=== PATIENT | female | born 1990 | race Hispanic/Latino ===

== ENCOUNTER 2018-06-19 21:49 | Emergency (ER) | payer OTHER ==
--- NOTE | 2018-06-20 00:11 | ED PDOC ---
Arrival/HPI - General Historian: Patient - History of Present Illness Narrative History of Present Illness (Text): 28 year old female who presents to the Emergency department complaining of sudden onset of pain to epigastric area, described as heart burn sensation. Patient reports discomfort radiating to upper chest area by the shoulders. Patient states pain started this evening while walking home, associated with nausea. Patient otherwise shortness of breath, fever, cough, back pain, vomiting, diarrhea, urinary symptoms, or any other complaints. Patient has never had symptoms like this before, states she had heart burn once many years ago but does not regularly have heart burn. Patient also denies any leg pain/swelling, recent travel, OCP use, or tobacco abuse. Patient reports father has a history of PE/DVT and was diagnosed with factor 5 leiden. Patient was tested as child, as well as her siblings, and all were negative for factor 5 leiden. Patient reports pain has improved but does still have some discomfort to her upper chest. Symptom Onset: Gradual Symptom Course: Unchanged Activities at Onset: Light Context: Home <Denia Whitaker PA-C - Last Filed: 06/20/18 01:53> <Cj Morris - Last Filed: 06/20/18 04:25> - General Chief Complaint: Cough, Cold, Congestion Time Seen by Provider: 06/19/18 23:52 Past Medical History - Provider Review Nursing Documentation Reviewed: Yes - Infectious Disease Hx of Infectious Diseases: None - Cardiac Hx Cardiac Disorders: No - Pulmonary Hx Respiratory Disorders: No - Neurological Hx Neurological Disorder: No - HEENT Hx HEENT Disorder: No - Renal Hx Renal Disorder: No - Endocrine/Metabolic Hx Endocrine Disorders: No - Hematological/Oncological Hx Blood Disorders: No - Integumentary Hx Dermatological Disorder: No - Musculoskeletal/Rheumatological Hx Musculoskeletal Disorders: No - Gastrointestinal Hx Gastrointestinal Disorders: No - Genitourinary/Gynecological Hx Genitourinary Disorders: No - Psychiatric Hx Psychophysiologic Disorder: No Hx Substance Use: No - Surgical History Other/Comment: ear tubes @ 6yo. wisdome teeth @ 18yo - Anesthesia Hx Anesthesia: Yes Hx Anesthesia Reactions: No <Denia Whitaker PA-C - Last Filed: 06/20/18 01:53> Family/Social History - Physician Review Nursing Documentation Reviewed: Yes Family/Social History: Unknown Family HX Smoking Status: Never Smoked Hx Alcohol Use: Yes Hx Substance Use: No <Denia Whitaker PA-C - Last Filed: 06/20/18 01:53> Allergies/Home Meds <Denia Whitaker PA-C - Last Filed: 06/20/18 01:53> <Cj Morris - Last Filed: 06/20/18 04:25> Allergies/Adverse Reactions: Allergies No Known Allergies Allergy (Verified 06/19/18 23:52) Home Medications: Home Meds Medication Instructions Recorded Confirmed No Known Home Med 06/19/18 06/19/18 Review of Systems - Physician Review All systems were reviewed & negative as marked: Yes - Review of Systems Constitutional: absent: Fevers Respiratory: SOB Cardiovascular: Chest Pain Gastrointestinal: Abdominal Pain, Nausea. absent: Vomiting <Denia Whitaker PA-C - Last Filed: 06/20/18 01:53> Physical Exam Vital Signs Reviewed: Yes Temperature: Afebrile Blood Pressure: Normal Pulse: Regular Respiratory Rate: Normal Appearance: Positive for: Well-Appearing, Non-Toxic, Comfortable Pain Distress: None Mental Status: Positive for: Alert and Oriented X 3 - Systems Exam Head: Present: Atraumatic, Normocephalic Pupils: Present: PERRL Extroacular Muscles: Present: EOMI Conjunctiva: Present: Normal Mouth: Present: Moist Mucous Membranes Neck: Present: Normal Range of Motion Respiratory/Chest: Present: Clear to Auscultation, Good Air Exchange. No: Respiratory Distress, Accessory Muscle Use Cardiovascular: Present: Regular Rate and Rhythm, Normal S1, S2. No: Murmurs Abdomen: No: Tenderness, Distention, Peritoneal Signs Back: Present: Normal Inspection Upper Extremity: Present: Normal Inspection. No: Cyanosis, Edema Lower Extremity: Present: Normal Inspection. No: Edema Neurological: Present: GCS=15, CN II-XII Intact, Speech Normal Skin: Present: Warm, Dry, Normal Color. No: Rashes Psychiatric: Present: Alert, Oriented x 3, Normal Insight, Normal Concentration <Denia Whitaker PA-C - Last Filed: 06/20/18 01:53> Medical Decision Making ED Course and Treatment: Impression: 28 year old female complaining of burning epigastric pain, nausea, and upper chest discomfort. Plan: -- EKG -- Chest X-ray -- Labs, cardiac enzymes, D-dimer -- Carafate -- Reassess and disposition Progress Notes: EKG : NSR at 90 bpm, no acute ST changes. CXR : NAD. 01:45 Labs reviewed : d-dimer (+) 632. CTA chest ordered. On re-evaluation, patient is laying in bed comfortably in no acute distress without chest pain or SOB at this time. Patient sent to CT. - RAD Interpretation Radiology Orders: 06/20/18 00:07 CHEST PORTABLE [RAD] Stat <Denia Whitaker PA-C - Last Filed: 06/20/18 01:53> ED Course and Treatment: CTA Chest reviewed, shows: Normal enhancement of the main pulmonary artery and right and left pulmonary arteries. Normal enhancement of the bilateral peripheral pulmonary arteries. There is no demonstrated pulmonary embolism. Normal thoracic aorta and visualized great vessels. There is no demonstrated aortic dissection. Normal heart and pericardium. Normal mediastinum. Normal hilar regions. Normal visualized trachea and bronchi. The lungs are well expanded. Normal pulmonary parenchyma. Normal pleura. Normal chest wall structures. Normal osseous structures. Normal visualized upper abdomen. IMPRESSION: No demonstrated pulmonary embolism or arterial dissection. Electronically signed on Jun 20, 2018 3:58:13 AM EDT by: Eric Crawford M.D., Certified by [facility], MSK, Neuroradiology - Lab Interpretations Lab Results: 06/20/18 00:39 06/20/18 00:39 Lab Results 06/20/18 00:39: Sodium 141, Potassium 4.4, Chloride 103, Carbon Dioxide 26, Anion Gap 16, BUN 9, Creatinine 0.7, Est GFR ( Amer) > 60, Est GFR (Non- Af Amer) > 60, Random Glucose 105, Calcium 9.7, Magnesium 2.1, Total Bilirubin 0.4, AST 54 H, ALT 50, Alkaline Phosphatase 68, Lactate Dehydrogenase 441, Total Creatine Kinase 67, Troponin I < 0.01, Total Protein 8.0, Albumin 4.6, Globulin 3.4, Albumin/Globulin Ratio 1.3 06/20/18 00:39: PT 11.8, INR 1.03, APTT 33.4, D-Dimer, Quantitative 632 H 06/20/18 00:39: WBC 9.5, RBC 4.10, Hgb 12.9, Hct 38.6, MCV 94.1, MCH 31.5, MCHC 33.4, RDW 13.2, Plt Count 296, MPV 10.4, Gran % 61.1, Lymph % (Auto) 29.6, Luce % (Auto) 7.5 H, Eos % (Auto) 1.6, Baso % (Auto) 0.2, Gran # 5.83, Lymph # (Auto) 2.8, Luce # (Auto) 0.7 H, Eos # (Auto) 0.2, Baso # (Auto) 0.02 I have reviewed the lab results: Yes - RAD Interpretation Radiology Orders: 06/20/18 00:07 CHEST PORTABLE [RAD] Stat 06/20/18 01:44 ANGIO CHEST PE PROTOCOL [CT] Stat Sales Estimator: Radiologist - Medication Orders Current Medication Orders: Discontinued Medications Sucralfate (Carafate Oral Susp) 2 gm PO STAT STA Stop: 06/20/18 00:15 Last Admin: 06/20/18 01:10 Dose: 2 gm <Cj Morris - Last Filed: 06/20/18 04:25> - PA / CARE ATTENDANT / Resident Statement MD/DO has reviewed & agrees with the documentation as recorded. - Scribe Statement The provider has reviewed the documentation as recorded by the [place] Provider Scribe Attestation: All medical record entries made by the Scribe were at my direction and personally dictated by me. I have reviewed the chart and agree that the record accurately reflects my personal performance of the history, physical exam, medical decision making, and the department course for this patient. I have also personally directed, reviewed, and agree with the discharge instructions and disposition. <Denia Whitaker PA-C - Last Filed: 06/20/18 01:53> Disposition/Present on Arrival - Present on Arrival Any Indicators Present on Arrival: No History of DVT/PE: No History of Uncontrolled Diabetes: No Urinary Catheter: No History of Decub. Ulcer: No History Surgical Site Infection Following: None - Disposition Have Diagnosis and Disposition been Completed?: Yes <Denia Whitaker PA-C - Last Filed: 06/20/18 01:53> - Present on Arrival Any Indicators Present on Arrival: No - Disposition Have Diagnosis and Disposition been Completed?: Yes Disposition Time: 04:23 <Cj Morris - Last Filed: 06/20/18 04:25> - Disposition Diagnosis: Chest pain, Esophagitis Disposition: HOME/ ROUTINE Patient Problems: Current Active Problems Problem Status Onset Chest pain Acute Condition: STABLE Discharge Instructions (ExitCare): Chest Pain (ED) Forms: [employer] (Pashto)
[2018-06-20] MEDS ORDERED: Sucralfate 1 gm/10 ml Oral Susp UD PO STA (00:14)
[2018-06-20 01:33] LABS: BASO # 0.02 K/mm3 (0.0-2.0); BASO % 0.2 % (0.0-3.0); EOS # 0.2 (0.0-0.7); EOS % 1.6 % (1.5-5.0); GRAN # 5.83 (1.4-6.5); GRAN % 61.1 % (50.0-68.0); HEMOGLOBIN 12.9 g/dL (12.0-16.0); LYMPH # 2.8 (1.2-3.4); LYMPH % 29.6 % (22.0-35.0); MEAN CELL VOLUME 94.1 fl (80.0-105.0); MEAN CORPUSCULAR HEMOGLOBIN 31.5 pg (25.0-35.0); MEAN CORPUSCULAR HGB CONC 33.4 g/dl (31.0-37.0); MEAN PLATELET VOLUME 10.4 fl (7.0-11.0); MONO # 0.7 (0.1-0.6); MONO % 7.5 % (1.0-6.0); RBC 4.1 10^6/uL (3.5-6.1); RED CELL DISTRIBUTION WIDTH 13.2 % (11.5-14.5); WHITE BLOOD COUNT 9.5 10^3/ul (4.5-11.0)
[2018-06-20 01:38] LABS: INR 1.03; PARTIAL THROMBOPLASTIN TIME 33.4 Seconds (25.1-36.5); PROTHROMBIN TIME 11.8 SECONDS (9.4-12.5)
[2018-06-20 01:44] LABS: ALB/GLOB RATIO 1.3 (1.1-1.8); ALBUMIN 4.6 g/dL (3.0-4.8); ALT/SGPT 50 U/L (7-56); AST/SGOT 54 U/L (14-36); BLOOD UREA NITROGEN 9 mg/dL (7-21); CALCIUM 9.7 mg/dL (8.4-10.5); GFR NON-AFRICAN AMERICAN > 60
[2018-06-20 02:00] LABS: TROPONIN I < 0.01 ng/mL
[2018-06-20] MEDS ORDERED: Iodixanol 320 MG/ML 100 ML BOTTLE IV ONE (02:42)
[2018-06-20 04:31] VITALS: PULSE 86; RESP 18; O2SAT 98
--- NOTE | 2018-06-20 09:31 | RAD ---
Date of service: 06/20/2018 HISTORY: CP COMPARISON: No prior. FINDINGS: LUNGS: The lungs are well inflated and clear. PLEURA: No pleural effusions or pneumothorax. CARDIOVASCULAR: The heart is normal in size. No aortic atherosclerotic calcification present. OSSEOUS STRUCTURES: Within normal limits for the patient's age. VISUALIZED UPPER ABDOMEN: Normal. OTHER FINDINGS: None. IMPRESSION: No active pulmonary disease.
--- NOTE | 2018-06-20 09:32 | CT ---
Date of service: 06/20/2018 PROCEDURE: CT Chest with contrast (Pulmonary Angiogram) HISTORY: chest pain, r/o PE COMPARISON: None available. TECHNIQUE: Axial computed tomography images were obtained of the chest in the pulmonary arterial phase of enhancement. Coronal and sagittal reformatted images were created and reviewed. Intravenous contrast dose: Radiation dose: Total exam DLP = 207.52 mGy-cm. This CT exam was performed using one or more of the following dose reduction techniques: Automated exposure control, adjustment of the mA and/or kV according to patient size, and/or use of iterative reconstruction technique. FINDINGS: PULMONARY ARTERIES: Unremarkable. No pulmonary embolism. AORTA: No acute findings. No thoracic aortic aneurysm. No aortic atherosclerotic calcification or mural plaque present. LUNGS: Unremarkable. No nodule, mass or pulmonary consolidation. PLEURAL SPACES: Unremarkable. No effusion or pneumothorax. HEART: Unremarkable. No cardiomegaly. No significant pericardial effusion. LYMPH NODES: No lymphadenopathy. BONES, CHEST WALL: Unremarkable. No fracture or destructive lesion OTHER FINDINGS: Unremarkable. IMPRESSION: Unremarkable CT pulmonary angiogram. No pulmonary embolus.
--- NOTE | 2018-06-20 10:52 | CARD ---
APPROVED REPORT Date of service: 06/19/2018 EKG Measurement Heart [id number] <Conclusion> Normal sinus rhythm with sinus arrhythmia Normal ECG
== END 2018-06-20 04:33 | disposition home or self-care (01) ==
LOC: ED 21:49
DX: R07.9 Chest pain, unspecified (principal); K20.9 Esophagitis, unspecified
CPT/HCPCS: 71045; 71275; 80053; 82550; 83615; 83735; 84484; 85025; 85378; 85610; 85730; 93005; 99283; Q9967